=== PATIENT | male | born 1985 | race Caucasian/White ===

== ENCOUNTER 2023-12-19 12:53 | Emergency (ER) | payer OTHER, SELFPAY ==
[2023-12-19 12:59] VITALS: BP 141/96
[2023-12-19 13:18] VITALS: BMI 31.7
[2023-12-19] MEDS: NSS 1000 IV (13:27)
[2023-12-19 13:42] LABS: % Basophils 0.7 % (0-2); % Eosinophils 1.4 % (0-6); % Immature Granulocytes 0.7 % (0-0.5); % Lymphocytes 18.1 % (20.5-51.1); % Monocytes 10.2 % (1.7-9.3); % Neutrophils 68.9 % (42.2-75.2); Absolute Eosinophils 0.1 10^3/uL (0-0.7); Absolute Lymphocytes 1.1 10^3/uL (1.2-3.4); Absolute Monocytes 0.6 10^3/uL (0.1-0.6); Absolute Neutrophils 4.1 10^3/uL (1.4-6.5); Hemoglobin 16.1 g/dL (13.0-18.0); Mean Corp Hgb Conc. 36.6 g/dL (33.0-37.0); Mean Corpuscular Hgb 32.9 pg (27.0-31.0); Mean Corpuscular Volume 89.8 fL (80.0-94.0); Mean Platelet Volume 11.9 fL (7.4-10.4); Nucleated Red Blood Cells % 0 % (-); Platelet Count 106 10^3/uL (130-400); Red Cell Dist. Width 12.1 % (11.5-14.5); White Blood Cell Count 5.9 10^3/uL (4.8-10.8)
[2023-12-19 13:48] VITALS: BP 126/77
[2023-12-19 13:49] LABS: ALT (SGPT) 45 U/L (0-50); AST (SGOT) 62 U/L (17-59); Albumin 4.1 g/dl (3.5-5.0); Alkaline Phosphatase 82 U/L (38-126); Blood Urea Nitrogen 8 mg/dl (9-20); Calcium 9.3 mg/dl (8.4-10.2); Carbon Dioxide 24 mmol/L (22-30); Chloride 98 mmol/L (98-107); Estimated Creatinine Clearance > 125 ml/min; Glucose 355 mg/dl (70-99); Magnesium 1.2 mg/dl (1.6-2.3); Potassium 3.5 mmol/L (3.5-5.1); Sodium 137 mmol/L (135-145); Total Bilirubin 0.9 mg/dl (0.2-1.3); Total Protein 7.6 g/dl (6.3-8.2); eGFR > 60.00
[2023-12-19 14:00] VITALS: BP 116/79
[2023-12-19 14:00] LABS: Troponin I < 0.012 ng/ml
[2023-12-19 15:00] VITALS: BP 125/71
[2023-12-19 15:24] LABS: Glucose - Point of Care 268 mg/dl (70-99)
--- NOTE | 2023-12-19 15:43 | ED.GENMED ---
History of Present Illness
General
Chief Complaint: Heart Rate Problem
Source: patient
Time Seen by Provider: 12/19/23 13:08
Travel History
Have you had any contact with someone who has COVID-19?: No
Do you have any symptoms of coronavirus? Fever > 100 degrees, chills, cough, shortness of breath, sore throat, loss of taste or smell, muscle aches, or headache?: No
History of Present Illness
History of Present Illness:
38-year-old male who presents after he noticed his heart was racing at home. The patient states that he is an alcoholic and had drinks last night. Patient states he has been trying to get sober but has had difficulty. He is drinking less than his
used to but still drinks 1-2 times a week and drinks heavy. The patient is being seen at a [facility]. Patient reports a little bit of chest discomfort which is why he came. Has family history of coronary disease. He does have a history of esophageal
varices and cirrhosis.
Past History
Past History
ED Past Medical History: HTN, Hypercholesterolemia, NIDDM, Hypothyroidism, Psychiatric (Anxiety, Bipolar, Depression), Other (Upper GI bleed related to esophageal varices August 2017. PNA, Cirrhosis, Stomach ulcers, UTI, ) and Other (Alcoholic
liver disease with cirrhosis)
ED Past Surgical History: Other (Esophageal varices banding)
Social History
Tobacco: Non-smoker
Alcohol: Occasional (States inbetween occasional and daily)
Personal: Single
Living: alone
Employment: Employed
Family History
Family History: Other (Alcoholism)
Phy Exam
Physical Exam
Physical Exam:
CONSTITUTIONAL Patient alert and oriented to person, place and time. Well-appearing. Vital signs reviewed.
HEAD atraumatic, normocephalic.
EYES eyelids normal to inspection, Pupils equally round and reactive to light, Extraocular muscles intact, Conjunctiva normal, Sclera normal.
NECK normal range of motion, Trachea midline, no jugular venous distention.
RESPIRATORY CHEST No respiratory distress noted, Chest expansion equal, Bilateral breath sounds clear.
CARDIOVASCULAR regular and tachycardic with heart rate 102 on exam, Heart sounds normal.
ABDOMEN abdomen nontender, Bowel sounds normal. No distention.
BACK normal inspection, no obvious deformities
UPPER EXTREMITY range of motion normal, Motor strength normal, no cyanosis, no edema.
LOWER EXTREMITY range of motion normal, Motor strength normal, no cyanosis, no edema.
NEURO Speech normal, No focal motor deficits, Kinross coma scale 15, Memory normal, Cranial Nerves intact to screening exam.
SKIN skin warm, dry, and normal in color.
PSYCHIATRIC patient oriented to person place and time, Normal affect.
Course
Orders/Labs/Results
Orders:
Orders
12/19/23 13:01
Electrocardiogram (*1) Urgent
Reason for Study: Bradycardia / Tachycardia
EKG- Treatment ONCE
12/19/23 13:25
Cardiac Monitoring- Treatment ONCE
0.9% Sodium Chloride 1000 ml [Nss] 1,000 ml IV BOLUS
CR Chest - 2 Views Urgent
Comment:
Reason For Exam: cp
12/19/23 13:28
Complete Blood Count/With Diff Urgent
Comprehensive Metabolic Panel Urgent
Magnesium Urgent
Troponin I Urgent
Abnormal Lab Results
12/19/23 12/19/23
13:28 15:22
MCH 32.9 H pg
(27.0-31.0)
Plt Count 106 L 10^3/uL
(130-400)
MPV 11.9 H fL
(7.4-10.4)
Absolute Lymphs (auto) 1.1 L 10^3/uL
(1.2-3.4)
Immature Gran % 0.7 H %
(0-0.5)
Lymphocytes % 18.1 L %
(20.5-51.1)
Monocytes % 10.2 H %
(1.7-9.3)
BUN 8 L mg/dl
(9-20)
Creatinine 0.5 L mg/dL
(0.7-1.3)
Glucose 355 H mg/dl
(70-99)
Magnesium 1.2 L mg/dl
(1.6-2.3)
AST 62 H U/L
(1759)
POC Glucose 268 H mg/dl
(70-99)
12/19/23 13:28
12/19/23 13:28
Vital Signs
Initial and Last Documented VS:
Initial Vital Signs
Temp Pulse Resp BP Pulse Ox
98.1 F 110 16 141/96 98
12/19/23 12:59 12/19/23 12:59 12/19/23 12:59 12/19/23 12:59 12/19/23 12:59
Last Documented Vital Signs
Temp Pulse Resp BP Pulse Ox
98.1 F 102 26 116/79 94
12/19/23 12:59 12/19/23 14:00 12/19/23 14:00 12/19/23 14:00 12/19/23 14:00
MDM/Problems Addressed
MDM/Problems Addressed:
Acute hyperglycemia, tachycardia, alcoholism
*Radiology
Radiology exam reviewed: radiology read reviewed and all reviewed NAD by ED Provider
*Pulse Oximetry
Patient hypoxic: no
*EKG
Interpreted by ED Provider?: Yes
Interpretation: abnormal
Rate: tachycardiac
Rhythm: sinus
Corona: normal axis
QRS Pattern: normal QRS
Ischemia: no ischemia
*Chief Chemist Interpretation
Rate: tachycardiac
Interpretation: abnormal
Rhythm: sinus
*Critical Care Note
Total Time (30-74mins, 75-104mins- exclusive of procedures): Not Applicable
Data Reviewed
Review of Other/Old Records Reveals: Labs (Prior labs reviewed) and Discharge Summary (Prior discharge summary from January 2020 reviewed)
Source: patient
Further Testing Considered But Not Given:
Considered PE study but no clinical concern. No hypoxia. No pleuritic chest pain. No signs of DVT
Patient Management
Escalation/DeEscalation of care consider admission/obs:
Patient is hyperglycemic. Does have a mild sinus tachycardia. Suspect related to status as well as alcohol abuse and possibly holiday heart. The patient denies melena or hematochezia and his hemoglobin is stable. Counseled at length on
importance of alcohol cessation. Patient does agree he will follow-up closely. In addition, he will follow-up closely for further advice on his blood glucose control. Lastly, I did recommend that he may consider looking at Ozempic as it may be
used in AUD
ED Attending Note
-
Portions of this chart may have been created with voice recognition software.� Occasional wrong word or��sound alike� substitutions may have occurred due to the inherent limitations of voice recognition software.
Discharge Plan
Departure
Patient Disposition: Home (Routine Discharge)
Date of Disposition: 12/19/23
Time of Disposition: 15:59
Patient with high blood pressure during this ER visit?: No
Discharge Problem:
Tachycardia, Alcohol use disorder, Acute hyperglycemia
Instructions: High Blood Sugar, Adult (DC), Alcohol Use Disorder (DC), Palpitations (DC)
Prescriptions:
No Action
insulin aspart U-100 [Novolog FlexPen U-100 Insulin] 300 UNITS/3 ML insulin pen
0 units SC AC
Patient Comments:
2 units per every 50 over 200
bupropion HCl 150 MG tablet extended release 24 hr
150 mg PO DAILY
magnesium oxide 500 MG tablet
500 mg PO DAILY AT 0700
venlafaxine 75 MG capsule,extended release 24hr
75 mg PO DAILY
ropinirole 0.25 MG tablet
0.5 mg PO TID
levothyroxine 50 MCG tablet
100 mcg PO DAILY
glimepiride 4 MG tablet
4 mg PO BID
folic acid 1 MG tablet
1 mg PO DAILY
lurasidone [Latuda] 40 MG tablet
40 mg PO DAILY
multivitamin with folic acid [Tab-A-Tre] 1 TABLET tablet
1 tab PO DAILY
carvedilol 6.25 MG tablet
3.125 mg PO BID
Patient Comments:
02/09/2020 patient hasn't filled since 09/27/2019 for a 10 days supply
lurasidone [Latuda] 80 MG tablet
80 mg PO HS
Patient Comments:
02/09/2020 patient last filled 12/01/2019 for 30 days
trazodone 100 MG tablet
100 mg PO HS
Patient Comments:
per pharmacy this is last dose filled
Rx Instructions:
as needed PRN
pantoprazole 40 MG tablet,delayed release (DR/EC)
40 mg PO BID Qty: 60 0RF
insulin glargine [Lantus U-100 Insulin] 1,000 UNITS/10 ML solution
19 units SC HS 0RF
insulin aspart U-100 [Novolog FlexPen U-100 Insulin] 300 UNITS/3 ML insulin pen
5 units SC AC 0RF
Patient Comments:
pt states taking 6-8 units before meals
sertraline
Rx Instructions:
Unsure of dose pt states it maybe 20 ?
Abilify
Rx Instructions:
pt states low dose but unsure of exact amount
ursodiol 300 mg Capsule
300 mg PO BID 7 Days Qty: 14 0RF
Referrals:
Michelle Love DO [Family Provider] -
Activity Restrictions/Additional Instructions:
Please drink plenty of fluids. Please see your doctor in the next 2 to 3 days for follow-up and reevaluation. Return immediately for intractable vomiting, blood in stool, black stools, abdominal pain, shortness of breath or any other concerns.
Please see your doctor with regards to managing her blood glucose. Please also consider the use of Ozempic as it could be helpful. Please stick to a strict diabetic diet
Interventions
Interventions:
*General Assessment Last Done: 12/19/23 15:08
*Neglect/Abuse Screening Last Done: 12/19/23 15:08
*ED COVID-19 Vaccine History Last Done: 12/19/23 12:59
ED- Cardiac Assessment Last Done: 12/19/23 13:18
ED- Pulmonary Assessment Last Done: 12/19/23 13:18
[2023-12-19 16:00] VITALS: BP 113/78
[2023-12-19 17:00] VITALS: BP 114/57
== END 2023-12-19 17:33 | disposition home or self-care (01) ==
LOC: EMR 12:53
PROVIDERS: EMERGENCY PHYSICIAN Emergency Medicine; FAMILY PHYSICIAN Family Medicine
DX: E11.65 Type 2 diabetes mellitus with hyperglycemia (principal); R00.0 Tachycardia, unspecified; R10.13 Epigastric pain; R07.89 Other chest pain; F10.20 Alcohol dependence, uncomplicated; I10 Essential (primary) hypertension; E03.9 Hypothyroidism, unspecified; E78.00 Pure hypercholesterolemia, unspecified; F41.9 Anxiety disorder, unspecified; K70.30 Alcoholic cirrhosis of liver without ascites; F32.A Depression, unspecified; F31.9 Bipolar disorder, unspecified; Z87.440 Personal history of urinary (tract) infections; Z87.11 Personal history of peptic ulcer disease; Z87.01 Personal history of pneumonia (recurrent); Z88.6 Allergy status to analgesic agent
CPT/HCPCS: 99284; 96360; 71046; 80053; 82962; 83735; 84484; 85025; 93005

== ENCOUNTER 2024-09-06 23:50 | Emergency (ER) | payer OTHER, SELFPAY ==
[2024-09-06 23:53] VITALS: BP 170/111
--- NOTE | 2024-09-07 00:40 | ED.MUSCINJ ---
HPI-Injury
General
Chief Complaint: Musculo-Skeletal Complaint
Source: patient
Exam Limitations: none
Time Seen by Provider: 09/07/24 00:33
Nursing documentation reviewed up to this point in time: agreed with
History of Present Illness-Injury
Is this injury a work related problem?: No
Is pt an associate of [facility]/[place]?: No
Initial Injury comments:
39-year-old male presents emergency department complaining of right hip pain. He feels like it popped out and he cannot bear weight. He went to [facility] last week and was diagnosed and sprained hip. He has a history of Legg calf
Perthes disease. He saw orthopedics and they did not recommend replacement at the time.
Past History
Past History
ED Past Medical History: HTN, Hypercholesterolemia, NIDDM, Hypothyroidism, Psychiatric (Anxiety, Bipolar, Depression), Other (Upper GI bleed related to esophageal varices August 2017. PNA, Cirrhosis, Stomach ulcers, UTI, ), Other (legg calf
perthes disease) and Other (Alcoholic liver disease with cirrhosis)
ED Past Surgical History: Other (Esophageal varices banding)
Social History
Tobacco: Non-smoker
Alcohol: Occasional (States inbetween occasional and daily)
Personal: Single
Living: alone
Employment: Employed
Family History
Family History: Other (Alcoholism)
Review of Systems
Review of Systems
Allergies reviewed?: Yes
All Other Systems: Not applicable
Constitutional: Reports no symptoms
EENT: Reports no symptoms
Respiratory: Reports no symptoms
Cardiac: Reports no symptoms
ABD/GI: Reports no symptoms
: Reports no symptoms
Musculoskeletal: Reports joint pain
Skin: Reports no symptoms
Neurological: Reports no symptoms
Endocrine: Reports no symptoms
Hematologic/Lymphatic: Reports no symptoms
Psychiatric: Reports no symptoms
Phy Exam
Physical Exam
Physical Exam:
Physical Exam
General: no apparent distress, not acutely ill
Neck: supple. no meningeal signs. normal posterior pharynx
Heart: s1/s2 regular rate and rhythm, no murmur. equal radial
pulses.
HEENT: Pupils equal round reactive to light, EOMI
Lungs: no acute respiratory distress. clear bilaterally
Abdomen: normal bowel sounds. not tender. no CVAT
Neuro: alert and oriented. no focal neurological deficits cranial nerves II through XII intact
Skin: no rash
Psychiatric: well kept. interactive and cooperative
Extremities: no edema. no calf tenderness. negative homans. good distal pulses
Injury Course
Orders/Labs/Results
Orders:
Orders
09/07/24 00:39
Hip, Right 2-3 Views [CR Hip - RT w/wo Pel 2-3 Vw*] Urgent
Comment:
Reason For Exam: right hip pain
Include a pelvis x-ray?: Yes
MDM/Problems Addressed
Differential Diagnosis Includes:
Hip dislocation, hip fracture
MDM/Problems Addressed:
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 Stable for discharge. Follow-up with Ortho
Chronic conditions affecting care: Other (Avascular femoral head necrosis)
Acute Exacerbation and/or Progression of Chronic Illness: Other (Avascular femoral head necrosis)
*Radiology
Radiology exam reviewed: preliminary read by ED provider (Right hip x-ray no acute findings)
*Pulse Oximetry
Patient hypoxic: no
*Critical Care Note
Total Time (30-74mins, 75-104mins- exclusive of procedures): Not Applicable
ED Attending Note
-
Portions of this chart may have been created with voice recognition software.� Occasional wrong word or��sound alike� substitutions may have occurred due to the inherent limitations of voice recognition software.
Discharge Plan
Departure
Patient Disposition: Home (Routine Discharge)
Date of Disposition: 09/07/24
Time of Disposition: 01:42
Patient with high blood pressure during this ER visit?: Yes
Condition: Good
Discharge Problem:
Acute pain of right hip, Zbla-[id number]-Ggehzfr disease, bilateral
Instructions: Muscle and Bone Pain (DC), BLOOD PRESSURE
Prescriptions:
No Action
insulin aspart U-100 [Novolog FlexPen U-100 Insulin] 300 UNITS/3 ML insulin pen
0 units SC AC
Patient Comments:
2 units per every 50 over 200
bupropion HCl 150 MG tablet extended release 24 hr
150 mg PO DAILY
magnesium oxide 500 MG tablet
500 mg PO DAILY AT 0700
venlafaxine 75 MG capsule,extended release 24hr
75 mg PO DAILY
ropinirole 0.25 MG tablet
0.5 mg PO TID
levothyroxine 50 MCG tablet
100 mcg PO DAILY
glimepiride 4 MG tablet
4 mg PO BID
folic acid 1 MG tablet
1 mg PO DAILY
lurasidone [Latuda] 40 MG tablet
40 mg PO DAILY
multivitamin with folic acid [Tab-A-Tre] 1 TABLET tablet
1 tab PO DAILY
carvedilol 6.25 MG tablet
3.125 mg PO BID
Patient Comments:
02/09/2020 patient hasn't filled since 09/27/2019 for a 10 days supply
lurasidone [Latuda] 80 MG tablet
80 mg PO HS
Patient Comments:
02/09/2020 patient last filled 12/01/2019 for 30 days
trazodone 100 MG tablet
100 mg PO HS
Patient Comments:
per pharmacy this is last dose filled
Rx Instructions:
as needed PRN
pantoprazole 40 MG tablet,delayed release (DR/EC)
40 mg PO BID Qty: 60 0RF
insulin glargine [Lantus U-100 Insulin] 1,000 UNITS/10 ML solution
19 units SC HS 0RF
insulin aspart U-100 [Novolog FlexPen U-100 Insulin] 300 UNITS/3 ML insulin pen
5 units SC AC 0RF
Patient Comments:
pt states taking 6-8 units before meals
sertraline
Rx Instructions:
Unsure of dose pt states it maybe 20 ?
Abilify
Rx Instructions:
pt states low dose but unsure of exact amount
ursodiol 300 mg Capsule
300 mg PO BID 7 Days Qty: 14 0RF
Referrals:
Anatoly Bateman MD [Active] - Call in 1-3 days for appt
Wilfredo Cárdenas DO [Family Provider] -
Anatoly Bateman MD [Active] -
Interventions
Interventions:
*Risk Screen - Suicide Last Done: 09/06/24 23:53
*General Assessment Last Done: 09/06/24 23:53
*Neglect/Abuse Screening Last Done: 09/06/24 23:53
*ED COVID-19 Vaccine History Last Done: 09/06/24 23:57
*Nursing Disposition Last Done: 09/07/24 01:51
ED-Musculoskeletal Assessment Last Done: 09/07/24 01:51
Discharge Date and Time
Discharge Date/Time: 09/07/24 01:59
Print Language: GREEK
== END 2024-09-07 01:59 | disposition home or self-care (01) ==
LOC: EMR 23:50
PROVIDERS: EMERGENCY PHYSICIAN Emergency Medicine; FAMILY PHYSICIAN Student in an Organized Health Care Education/Training Program
DX: M25.551 Pain in right hip (principal); I10 Essential (primary) hypertension; E78.00 Pure hypercholesterolemia, unspecified; E11.9 Type 2 diabetes mellitus without complications; E03.9 Hypothyroidism, unspecified; F31.9 Bipolar disorder, unspecified; F41.9 Anxiety disorder, unspecified; K70.30 Alcoholic cirrhosis of liver without ascites; Z87.11 Personal history of peptic ulcer disease; Z87.440 Personal history of urinary (tract) infections
CPT/HCPCS: 99283; 73502